=== PATIENT | female | born 1940 ===

== ENCOUNTER 2018-02-16 09:01 | Day surgery (SDC) | payer MEDICARE ==
[2018-02-16] MEDS ORDERED: Lactated Ringer's 1,000 ML IV ONE (10:00)
[2018-02-16 10:04] VITALS: RESP 18
[2018-02-16] MEDS ORDERED: Propofol 10 mg/ml Inj (20 ML) ONE (12:03)
[2018-02-16] MEDS ORDERED: cefTRIAXone (Rocephin) 1 gm Inj ONE (12:32)
[2018-02-16] MEDS ORDERED: Iohexol 240 200 ML ONE (12:32)
[2018-02-16] MEDS ORDERED: Dexamethasone 4 mg/1 ml ONE (13:01)
[2018-02-16] MEDS ORDERED: Dexamethasone 4 mg/1 ml IVP PRN (13:48)
[2018-02-16 13:59] VITALS: O2SAT 100
[2018-02-16] MEDS ORDERED: Lactated Ringer's 1,000 ML IV SCH (14:00)
[2018-02-16 16:02] VITALS: BP 123/78; PULSE 68; TEMP 97.6
--- NOTE | 2018-02-18 16:55 | RAD ---
Date of service: 02/16/2018 PROCEDURE: Intraoperative Fluoroscopy. HISTORY: CYSTOSCOPY FINDINGS: Fluoroscopic assistance was provided for retrograde and stent placement. Please refer to the operative report from [facility]. Total fluoroscopic time (continuous mode) utilized during the procedure 111.14 (seconds).
--- NOTE | 2018-03-11 08:49 | OP ---
PROCEDURE DATE: 02/16/2018 PREOPERATIVE DIAGNOSIS: Right renal colic secondary to multiple right ureteral calculi. POSTOPERATIVE DIAGNOSIS: Right renal colic secondary to multiple right ureteral calculi. PROCEDURE PERFORMED: Cystoscopy, right ureteroscopy, and J-stent placement. DESCRIPTION OF PROCEDURE: Under general anesthesia, the patient was placed in the operating room table in a dorsal lithotomy position. The area of the groin was draped and prepped in a sterile manner. Using a short ureteroscope, I entered into the bladder atraumatically, I identified the right ureteral orifice, and at this time, under direct vision, I came up to the area of multiple ureteral calculi. With the ureteroscope very close to the leading stone, I was able then to pass a sensor wire beyond this group of stones, and under fluoroscopy, so the sensor wire going to the level of the renal pelvis. Once this was done, I then exchanged the ureteroscope for a cystoscope, placed a 6-[place]e multilength J-stent over the existing sensor wire, and under fluoroscopy, advanced it to the level of the renal pelvis. Once this was done, the patient then had the instrumentation removed, and she was taken from the operating room in good condition. Ubaldo Cuenca MD
== END 2018-02-16 16:20 | disposition home or self-care (01) ==
LOC: H.OPSURG 09:01
PROVIDERS: ATTEND Urology
DX: N20.2 Calculus of kidney with calculus of ureter (principal); I10 Essential (primary) hypertension; J44.9 Chronic obstructive pulmonary disease, unspecified; M19.90 Unspecified osteoarthritis, unspecified site
CPT/HCPCS: 52332; C2617; J0696; J1100; J1885; J2001; J2405; J2704; J3010; J7120; Q9966

== ENCOUNTER 2018-04-20 09:35 | Day surgery (SDC) | payer MEDICARE ==
[2018-04-14 14:12] VITALS: BMI 28.3
[2018-04-20] MEDS ORDERED: Lactated Ringer's 1,000 ML IV ONE ×2 (10:30→14:20)
[2018-04-20] MEDS ORDERED: Iohexol 240 200 ML ONE (10:36)
[2018-04-20] MEDS ORDERED: Succinylcholine 200 mg/10 ml Inj IV ONE (11:09)
[2018-04-20] MEDS ORDERED: Midazolam 2 MG/2 ML VIAL ONE (11:09)
[2018-04-20] MEDS ORDERED: Lidocaine 4% (Laryng-O-Jet) Kit MM ONE (11:09)
[2018-04-20] MEDS ORDERED: Propofol 10 mg/ml Inj (20 ML) ONE (11:09)
[2018-04-20] MEDS ORDERED: ePHEDrine 50 mg/ml Inj ONE ×2 (11:09→12:10)
[2018-04-20] MEDS: cefTRIAXone (Rocephin) 1 gm Inj ONE ×2 (11:30→11:35)
[2018-04-20] MEDS ORDERED: Dexamethasone 4 mg/1 ml ONE (11:50)
[2018-04-20] MEDS ORDERED: Iohexol 300 100 ML IJ ONE ×2 (12:18)
[2018-04-20] MEDS ORDERED: Sevoflurane - Inhalation Anesthetic Liq (250 ml) ONE (12:40)
[2018-04-20] MEDS ORDERED: Lactated Ringer's 1,000 ML IV SCH (13:15)
[2018-04-20 14:46] VITALS: RESP 18
--- NOTE | 2018-04-20 15:07 | RAD ---
Date of service: 04/20/2018 PROCEDURE: Fluoroscopic assistance in excess of 1 hour. HISTORY: CYSTOSCOPY COMPARISON: None TECHNIQUE: Standard protocol for this study/examination. FINDINGS: Total fluoroscopic time (continuous mode) utilized during the procedure approximately 2 min. IMPRESSION: Submitted images from the current procedure: 39.0
[2018-04-20 15:43] VITALS: BP 137/69; PULSE 79; TEMP 97.6; O2SAT 96
--- NOTE | 2018-04-21 00:07 | OP ---
PROCEDURE DATE: 04/20/2018 PREOPERATIVE DIAGNOSIS: Multiple right ureteral calculi causing obstruction. POSTOPERATIVE DIAGNOSIS: Multiple right ureteral calculi causing obstruction. PROCEDURE PERFORMED: Cystoscopy with multiple stone basketings, removal of J-stent, and insertion of a new J-stent, and all of this was a very difficult procedure to say the least. DESCRIPTION OF PROCEDURE: At the initial onset, the ureteroscope was placed into the bladder. I got to the level of the stones following an existing J-stent that was in place and saw the bulk of the stones. At this time, I came back. I used a grasper and I removed the distal portion of the J-stent and tried to thread a sensor wire through it and it would not go. I had to pull on it sufficiently enough that I think the tip broke in its means coming down. I then went back one by one, probably took out about 15 fragments, in and out with each fragment, then I went beyond the level of the stones at this point and I got to a point in which there was a hydroureter. I did a retrograde pyelography and there was a severe kink in the ureter and I was able to negotiate a curved sensor wire around this area and then into the renal pelvis itself. This took quite a while, multiple attempts with different stents, but finally we were able to do so. I then went back and forth still looking at the ureter to see if I could see the end of the double J-stent that I had thought broke and I could not find it. It probably either was mixed in with the stones that we removed or it is still there, but not in a clear visual position. At this point, with multiple back and forth, the entire field became significantly bloody, I could not see well at all at this time, so I decided to stop, and put in a 6-Arabic multi-link double J-stent under fluoroscopy in good position. Some of the stones were aspirated out of the bladder. The patient then was taken from the operating room in good condition. Ubaldo Cuenca MD
== END 2018-04-20 16:15 | disposition home or self-care (01) ==
LOC: H.OPSURG 09:35
PROVIDERS: ATTEND Urology
DX: N20.2 Calculus of kidney with calculus of ureter (principal); J44.9 Chronic obstructive pulmonary disease, unspecified; M13.88 Other specified arthritis, other site
CPT/HCPCS: 52332; 82355; 88300; 88304; C2617; J0330; J0696; J1100; J1170; J2001; J2250; J2405; J2704; J3010; J7120; Q9966; Q9967

== ENCOUNTER 2018-05-06 08:46 | Day surgery (SDC) | payer MEDICARE, OTHER ==
[2018-04-14 14:12] VITALS: BMI 28.3
[2018-05-06] MEDS ORDERED: Lactated Ringer's 1,000 ML IV ONE ×2 (09:29→13:10)
[2018-05-06 10:14] LABS: PROTHROMBIN TIME 11.1 Seconds (9.8-13.1)
[2018-05-06 10:17] LABS: PARTIAL THROMBOPLASTIN TIME 26.8 Seconds (25.6-37.1)
[2018-05-06] MEDS ORDERED: Propofol 10 mg/ml Inj (20 ML) ONE ×2 (11:20→12:03)
[2018-05-06] MEDS ORDERED: cefTRIAXone (Rocephin) 1 gm Inj ONE (11:51)
[2018-05-06] MEDS ORDERED: ePHEDrine 50 mg/ml Inj ONE (12:13)
[2018-05-06] MEDS ORDERED: Lactated Ringer's 1,000 ML IV SCH (12:30)
[2018-05-06 12:44] VITALS: RESP 18
[2018-05-06 14:40] VITALS: TEMP 98.5
[2018-05-06 15:22] VITALS: BP 122/83; PULSE 67; O2SAT 96
--- NOTE | 2018-06-02 12:41 | OP ---
PROCEDURE DATE: 05/06/2018 PREOPERATIVE DIAGNOSIS: Residual right ureteral calculus post lithotripsy. POSTOPERATIVE DIAGNOSIS: Residual right ureteral calculus post lithotripsy. PROCEDURES: Cystoscopy with ureteroscopy, removal of double J-stent on right side and removal of multiple residual ureteral calculi. DESCRIPTION OF PROCEDURE: The patient was placed on the operating table in the dorsal lithotomy position. The area of the groin was draped and prepped in a sterile manner. She was given general anesthesia. At this time, using a regular cystoscope, I entered into the bladder. I secured the tail end of the existing double J-stent and through that stent, I passed a sensor wire as a safety wire. I left that in place and then removed the cystoscope and inserted a ureteroscope, identified the right ureteral orifice and alongside the safety wire, I reached to the mid ureter where there was multiple fragments of residual ureteral calculi and by multiple, I am going to say probably 6 or 7 stones that were in excess of 5 mm in size. So, one by one, I used the stone basket to remove all the residual fragments. At the end of this multiple removal, I did a last look from the kidney down through the bladder. I saw probably 2 or 3 small specks that were less than 1 mm and no other significant stones were seen in the ureteral tract on that side. Once this was clearly identified, then I removed the ureteroscope. I removed the safety wire. The stones were sent for specimen analysis. The patient was taken from the operating room in good condition. Ubaldo Cuenca MD
== END 2018-05-06 16:30 | disposition home or self-care (01) ==
LOC: H.OPSURG 08:46
PROVIDERS: ATTEND Urology
DX: N20.1 Calculus of ureter (principal); M19.90 Unspecified osteoarthritis, unspecified site; J45.909 Unspecified asthma, uncomplicated; I10 Essential (primary) hypertension; J44.9 Chronic obstructive pulmonary disease, unspecified
CPT/HCPCS: 36415; 52320; 52332; 82355; 85610; 85730; 88300; 88304; J0696; J2001; J2270; J2405; J2704; J3010; J7120